=== PATIENT | male | born 1995 | race Caucasian/White ===

== ENCOUNTER 2020-08-25 08:23 | Outpatient (CLI) | payer BC ==
[2020-08-25 16:39] LABS: SARS-CoV-2 PCR by NAA DETECTED (NotDetected)
== END 2020-08-25 08:24 | disposition home or self-care (01) ==
LOC: EDSEX → CSHLAB 08:23
PROVIDERS: ATTEND Obstetrics & Gynecology
DX: U07.1 COVID-19 (principal)
CPT/HCPCS: 87635; U0003; U0005

== ENCOUNTER 2020-08-27 12:31 | Day surgery (SDC) | payer BC ==
[2020-08-27 13:06] VITALS: BMI 23.7
[2020-08-27] MEDS ORDERED: hydrALAZINE 20 MG/ML VIAL SLOW IVP PRN (13:47)
[2020-08-27] MEDS ORDERED: Acetaminophen 500 MG TAB PO PRN (14:03)
[2020-08-27 15:09] LABS: Bilirubin Neg (Negative); Blood, Urine 250 (Negative); Clarity Clear (Clear); Glucose, Urine (Dipstick) Normal (Negative); Ketone, Urine Negative (Negative); Leukocyte Negative (Negative); Nitrite Negative (Negative); Protein, Urine (Dipstick) 15 mg/dl (Neg-Trace); Specific Gravity, Urine 1.015 (1.002-1.036); Urobilinogen Normal mg/dL (Less than 2); pH, Urine 6.5 (5.0-9.0)
[2020-08-27 15:17] LABS: Urine Culture Reflex No No
[2020-08-27 15:19] LABS: RBC/HPF Greater than 50 HPF (0-3); Squamous Epithelial 0-3 HPF (0-3)
[2020-08-27 15:20] LABS: Bacteria/HPF Rare-Few HPF (None Seen); Transitional Epithelial 0-3 HPF (None Seen)
[2020-08-27 15:21] LABS: Other Microscopic Description MUCOUS 1+
== END 2020-08-27 15:50 | disposition home or self-care (01) ==
LOC: CSHLD/OP 12:31 → EDSEX 12:31 → CSHLD/OP 15:50
PROVIDERS: ATTEND Obstetrics & Gynecology
DX: O99.891 Other specified diseases and conditions complicating pregnancy (principal); N13.30 Unspecified hydronephrosis; O98.513 Other viral diseases complicating pregnancy, third trimester; U07.1 COVID-19; O99.113 Other diseases of the blood and blood-forming organs and certain disorders involving the immune mechanism complicating pregnancy, third trimester; D68.51 Activated protein C resistance; Z3A.39 39 weeks gestation of pregnancy
CPT/HCPCS: 76770; 81001; 87086; 99283

== ENCOUNTER 2020-08-29 19:00 | Inpatient (IN) | payer BC ==
[2020-08-29] MEDS ORDERED: Ibuprofen 800 MG TAB PO PRN (20:00)
[2020-08-29] MEDS ORDERED: Ondansetron PF 4 MG/2 ML Vial IVP PRN (20:00)
[2020-08-29] MEDS ORDERED: Misoprostol 200 MCG TAB RC PRN (20:00)
[2020-08-29] MEDS ORDERED: hydrALAZINE 20 MG/ML VIAL SLOW IVP PRN (20:00)
[2020-08-29] MEDS ORDERED: Promethazine HCl 25 MG/ML VIAL IM PRN (20:00)
[2020-08-29] MEDS ORDERED: Butorphanol Tartrate 1 MG/ML VIAL SLOW IVP PRN (20:00)
[2020-08-29] MEDS ORDERED: Lidocaine 1% (PF) 30 ML VIAL SC PRN (20:00)
[2020-08-29] MEDS ORDERED: Misoprostol 100 MCG TAB PO SCH (20:00)
[2020-08-29] MEDS ORDERED: Carboprost 250 MCG/ML AMP IM PRN (20:00)
[2020-08-29] MEDS ORDERED: NS w/ Oxytocin 30 units 500 ML IV SCH ×2 (20:00)
[2020-08-29] MEDS ORDERED: NS w/ Oxytocin 30 units 500 ML IVPB SCH (20:00)
[2020-08-29] MEDS ORDERED: Acetaminophen 500 MG TAB PO PRN (20:00)
[2020-08-29] MEDS ORDERED: Methylergonovine 0.2 MG/ML VIAL IM PRN (20:00)
[2020-08-29] MEDS: Lactated Ringer's 1,000 ML IV SCH (20:10)
[2020-08-29 21:22] LABS: Hemoglobin 11.6 g/dL (12.0-15.5); Mean Corpuscular HGB CONC 33.4 g/dL (32.0-36.0); Mean Corpuscular Hemoglobin 29.6 pg (27.0-33.0); Mean Corpuscular Volume 88.5 fl (81.6-98.3); Mean Platelet Volume 11.8 fl (7.4-10.4); Platelet Count 232 10x3/uL (150-450); RBC Distribution Width 12.5 % (11.5-14.5); Red Blood Cell (RBC) Count 3.92 10x6/uL (3.90-5.03); White Blood Cell (WBC) Count 9.5 10x3/uL (3.5-10.5)
[2020-08-29 21:55] LABS: Hep B Surf Ag Non-Reactive S/CO (NonReactive); Syphilis Antibody Nonreactive (Nonreactive); Syphilis Antibody Index 0.03 S/CO (<1.00 Non-Reactive)
[2020-08-29 22:14] LABS: HBSAg Index 0.17 S/CO (0-0.99)
[2020-08-29 22:18] VITALS: BMI 25.2
[2020-08-29 22:55] LABS: Bilirubin Neg (Negative); Blood, Urine Negative (Negative); Clarity Clear (Clear); Glucose, Urine (Dipstick) Normal (Negative); Ketone, Urine Negative (Negative); Leukocyte Negative (Negative); Nitrite Negative (Negative); Protein, Urine (Dipstick) Negative (Neg-Trace); Urobilinogen Normal mg/dL (Less than 2)
[2020-08-30] MEDS: Lactated Ringer's 1,000 ML IV SCH ×2 (04:32→18:13)
[2020-08-30] MEDS ORDERED: Fentanyl 4 mcg/Bup 0.1% Cadd 100 ML ONE (07:11)
[2020-08-30] MEDS ORDERED: Lactated Ringer's 500 ML IV PRN (10:38)
[2020-08-30] MEDS ORDERED: Naloxone HCl 0.4 mg/ml Vial IVP PRN ×2 (10:38)
[2020-08-30] MEDS ORDERED: diphenhydrAMINE 50 MG/ML VIAL IVP PRN (10:38)
[2020-08-30] MEDS ORDERED: Eucerin (Mineral Oil/Petrolatum,White) 30 gm Jar TOP PRN (10:38)
[2020-08-30] MEDS ORDERED: Promethazine HCl 25 MG/ML VIAL IM PRN (10:38)
[2020-08-30] MEDS ORDERED: ePHEDrine 50 MG/ML VIAL SLOW IVP PRN (10:38)
[2020-08-30] MEDS ORDERED: Ondansetron PF 4 MG/2 ML Vial IVP PRN ×2 (10:38→17:04)
[2020-08-30] MEDS ORDERED: Acetaminophen 325 MG TAB PO PRN (10:38)
[2020-08-30] MEDS ORDERED: Communication Order-Pharmacy FS SCH (10:45)
[2020-08-30] MEDS: Ibuprofen 800 MG TAB PO PRN ×2 (15:00→22:09)
[2020-08-30] MEDS ORDERED: Acetaminophen/Codeine 30-300mg Tablet PO PRN (17:04)
[2020-08-30] MEDS ORDERED: Adacel (T-DAP) 0.5 ML SYRINGE IM ONE (17:04)
[2020-08-30] MEDS ORDERED: Lanolin Ointment 7 GM TUBE TOP PRN (17:04)
[2020-08-30] MEDS ORDERED: Milk Of Magnesia 30 ML UDCUP PO PRN (17:04)
[2020-08-30] MEDS ORDERED: hydrALAZINE 20 MG/ML VIAL SLOW IVP PRN (17:04)
[2020-08-30] MEDS ORDERED: Bisacodyl 10 MG SUPP PR PRN (17:04)
[2020-08-30] MEDS ORDERED: NS w/ Oxytocin 30 units 500 ML IV SCH (17:30)
[2020-08-30] MEDS: Ferrous Sulfate 325 MG TAB PO SCH (18:12)
[2020-08-30] MEDS: HYDROcodone/Acetaminophen 5/325 mg Tablet PO PRN (18:33)
[2020-08-30] MEDS: Docusate Calcium (SURFAK) 240 MG CAP PO SCH (22:09)
[2020-08-31] MEDS: Ibuprofen 800 MG TAB PO PRN ×3 (05:09→23:51)
[2020-08-31 06:01] LABS: Hemoglobin 9.7 g/dL (12.0-15.5); Mean Corpuscular HGB CONC 33.1 g/dL (32.0-36.0); Mean Corpuscular Hemoglobin 29.3 pg (27.0-33.0); Mean Corpuscular Volume 88.5 fl (81.6-98.3); Mean Platelet Volume 10.7 fl (7.4-10.4); Platelet Count 169 10x3/uL (150-450); RBC Distribution Width 12.7 % (11.5-14.5); Red Blood Cell (RBC) Count 3.31 10x6/uL (3.90-5.03); White Blood Cell (WBC) Count 10.4 10x3/uL (3.5-10.5)
[2020-08-31] MEDS: Docusate Calcium (SURFAK) 240 MG CAP PO SCH ×2 (11:34→21:10)
[2020-08-31] MEDS: Ferrous Sulfate 325 MG TAB PO SCH ×2 (11:34→18:03)
[2020-08-31] MEDS: Prenatal Vitamin 1 TAB PO SCH (11:34)
[2020-08-31] MEDS: HYDROcodone/Acetaminophen 5/325 mg Tablet PO PRN (14:44)
[2020-09-01 08:00] VITALS: BP 118/62; TEMP 98.2
[2020-09-01] MEDS: Docusate Calcium (SURFAK) 240 MG CAP PO SCH (08:51)
[2020-09-01] MEDS: Ferrous Sulfate 325 MG TAB PO SCH (08:51)
[2020-09-01] MEDS: Prenatal Vitamin 1 TAB PO SCH (08:51)
== END 2020-09-01 13:00 | disposition home or self-care (01) | DRG 807 ==
LOC: EDSEX → CSHLD 19:02 → CSHPP 08-30 14:40
PROVIDERS: ADMIT Obstetrics & Gynecology; ATTEND Obstetrics & Gynecology
PROC: 10E0XZZ Delivery of Products of Conception, External Approach (ICD-10-PCS; principal; 2020-08-30)
PROC: 0KQM0ZZ Repair Perineum Muscle, Open Approach (ICD-10-PCS; 2020-08-30)
DX: O69.81X0 Labor and delivery complicated by cord around neck, without compression, not applicable or unspecified (principal); Z37.0 Single live birth; O70.1 Second degree perineal laceration during delivery; Z20.822 Contact with and (suspected) exposure to COVID-19; Z3A.39 39 weeks gestation of pregnancy
CPT/HCPCS: 36415; 76770; 81001; 81003; 85027; 86780; 86850; 86900; 86901; 87086; 87340; 99283; J2590

== ENCOUNTER 2022-07-31 20:43 | Emergency (ER) | payer BC ==
[2022-07-31 21:49] LABS: Bilirubin Neg (Negative); Blood, Urine 25 (Negative); Clarity Clear (Clear); Glucose, Urine (Dipstick) Normal (Negative); Ketone, Urine 150 mg/dL (Negative); Leukocyte 100 (Negative); Nitrite Negative (Negative); Protein, Urine (Dipstick) 15 mg/dl (Neg-Trace)
[2022-07-31 22:00] LABS: Bacteria/HPF None Seen HPF (None Seen); RBC/HPF 0-3 HPF (0-3); Squamous Epithelial 0-3 HPF (0-3); WBC/HPF 0-3 HPF (0-3)
[2022-07-31 22:01] LABS: Mucous/LPF 1+ LPF (<2+)
[2022-07-31] MEDS ORDERED: Ondansetron ODT 4 MG TAB ONE (23:42)
== END 2022-07-31 23:43 | disposition home or self-care (01) ==
LOC: CSHERS 20:43
DX: O99.891 Other specified diseases and conditions complicating pregnancy (principal); M54.9 Dorsalgia, unspecified; R30.0 Dysuria; Z3A.20 20 weeks gestation of pregnancy
CPT/HCPCS: 81003; 81015; 87086; 99283; Q0162

== ENCOUNTER 2022-12-13 22:39 | Inpatient (IN) | payer BC ==
[2022-12-13 22:53] VITALS: BMI 26.9
[2022-12-13] MEDS ORDERED: Promethazine HCl 25 MG/ML VIAL IM PRN (23:21)
[2022-12-13] MEDS ORDERED: Lidocaine 1% (PF) 30 ML VIAL SC PRN (23:21)
[2022-12-13] MEDS ORDERED: Ondansetron PF 4 MG/2 ML Vial IVP PRN (23:21)
[2022-12-13] MEDS ORDERED: Lactated Ringer's 1,000 ML IV PRN (23:21)
[2022-12-13] MEDS ORDERED: hydrALAZINE 20 MG/ML VIAL SLOW IVP PRN (23:21)
[2022-12-13] MEDS ORDERED: HYDROcodone/Acetaminophen 5/325 mg Tablet PO PRN ×2 (23:27)
[2022-12-13] MEDS ORDERED: Methylergonovine 0.2 MG/ML VIAL IM PRN (23:27)
[2022-12-13] MEDS ORDERED: Ibuprofen 800 MG TAB PO PRN (23:27)
[2022-12-13] MEDS ORDERED: Misoprostol 200 MCG TAB PR PRN (23:27)
[2022-12-13] MEDS ORDERED: Butorphanol Tartrate 1 MG/ML VIAL SLOW IVP PRN (23:27)
[2022-12-13] MEDS ORDERED: NS w/ Oxytocin 30 units 500 ML ONE (23:28)
[2022-12-13] MEDS ORDERED: NS w/ Oxytocin 30 units 500 ML IV SCH (23:45)
[2022-12-14 00:01] LABS: Hematocrit 31.3 % (34.9-44.5); Hemoglobin 10.3 g/dL (12.0-15.5); Mean Corpuscular HGB CONC 32.9 g/dL (32.0-36.0); Mean Corpuscular Hemoglobin 26.7 pg (27.0-33.0); Mean Corpuscular Volume 81.1 fl (81.6-98.3); Mean Platelet Volume 10.6 fl (7.4-10.4); Platelet Count 264 10x3/uL (150-450); Red Blood Cell (RBC) Count 3.86 10x6/uL (3.90-5.03); White Blood Cell (WBC) Count 13.4 10x3/uL (3.5-10.5)
[2022-12-14 00:34] LABS: HBSAg Index 0.17 S/CO (0-0.99); Hep B Surf Ag - L&D Non-Reactive S/CO (NonReactive); Syphilis Antibody Nonreactive (Nonreactive); Syphilis Antibody Index 0.03 S/CO (<1.00 Non-Reactive)
[2022-12-14] MEDS ORDERED: HYDROcodone/Acetaminophen 5/325 mg Tablet PO PRN ×2 (04:48)
[2022-12-14] MEDS ORDERED: Boostrix 0.5 ML (Tdap) VIAL (>/=7 yrs of age) IM ONE (04:48)
[2022-12-14] MEDS ORDERED: Methylergonovine 0.2 MG/ML VIAL IM PRN (04:48)
[2022-12-14] MEDS ORDERED: Lanolin Ointment 7 GM TUBE TOP PRN (04:48)
[2022-12-14] MEDS ORDERED: NS w/ Oxytocin 30 units 500 ML IV SCH (04:48)
[2022-12-14] MEDS ORDERED: Milk Of Magnesia 30 ML UDCUP PO PRN (04:48)
[2022-12-14] MEDS ORDERED: Bisacodyl 10 MG SUPP PR PRN (04:48)
[2022-12-14] MEDS ORDERED: Benzocaine-Menthol 82.5 ML CAN TOP PRN (04:48)
[2022-12-14] MEDS ORDERED: Misoprostol 200 MCG TAB VAG PRN (04:48)
[2022-12-14] MEDS ORDERED: hydrALAZINE 20 MG/ML VIAL SLOW IVP PRN (04:48)
[2022-12-14] MEDS: Ibuprofen 800 MG TAB PO SCH ×3 (08:06→21:49)
[2022-12-14] MEDS: Prenatal Vitamin 1 TAB PO SCH (08:07)
[2022-12-14] MEDS: Docusate 100 MG CAP PO SCH ×2 (08:07→21:49)
[2022-12-14] MEDS: Ferrous Sulfate 325 MG TAB PO SCH ×2 (09:50→21:45)
[2022-12-15] MEDS: Ibuprofen 800 MG TAB PO SCH (06:16)
[2022-12-15] MEDS: Prenatal Vitamin 1 TAB PO SCH (08:20)
[2022-12-15] MEDS: Docusate 100 MG CAP PO SCH (08:20)
[2022-12-15 08:29] VITALS: BP 121/62; TEMP 97.7
[2022-12-15] MEDS: Ferrous Sulfate 325 MG TAB PO SCH (09:47)
== END 2022-12-15 11:40 | disposition home or self-care (01) | DRG 806 ==
LOC: CSHLD/OP 22:39 → CSHLD 23:01 → CSHPP 12-14 05:50
PROVIDERS: ADMIT Student in an Organized Health Care Education/Training Program; ATTEND Student in an Organized Health Care Education/Training Program
PROC: 10E0XZZ Delivery of Products of Conception, External Approach (ICD-10-PCS; principal; 2022-12-14)
PROC: 0HQ9XZZ Repair Perineum Skin, External Approach (ICD-10-PCS; 2022-12-14)
DX: O99.12 Other diseases of the blood and blood-forming organs and certain disorders involving the immune mechanism complicating childbirth (principal); D68.51 Activated protein C resistance; Z37.0 Single live birth; Z3A.39 39 weeks gestation of pregnancy; O69.81X0 Labor and delivery complicated by cord around neck, without compression, not applicable or unspecified; O32.6XX0 Maternal care for compound presentation, not applicable or unspecified; O70.0 First degree perineal laceration during delivery
CPT/HCPCS: 36415; 85027; 86780; 86850; 86900; 86901; 87340; 99285; J2001; J2405

== ENCOUNTER 2022-12-20 20:57 | Emergency (ER) | payer BC ==
[2022-12-20] MEDS ORDERED: Ketorolac Tromethamine 30 MG/ML VIAL ONE (21:28)
[2022-12-20 21:46] LABS: #Eosinphils 0.1 10x3/uL (0.0-0.5); #Monocytes 0.7 10x3/uL (0.0-1.1); #Neutrophils 10.2 10x3/uL (1.5-8.4); %Basophils 0.1 % (0.0-2.0); %Lymphocytes 11.4 % (18.0-47.0); %Monocytes 5.4 % (0.0-10.0); %Neutrophils 81.5 % (40.0-75.0); Hematocrit 37.8 % (34.9-44.5); Hemoglobin 12.1 g/dL (12.0-15.5); Mean Corpuscular Hemoglobin 26.3 pg (27.0-33.0); Mean Corpuscular Volume 82.2 fl (81.6-98.3); Mean Platelet Volume 9.5 fl (7.4-10.4); Platelet Count 418 10x3/uL (150-450); RBC Distribution Width 14.6 % (11.5-14.5); White Blood Cell (WBC) Count 12.5 10x3/uL (3.5-10.5)
[2022-12-20 21:52] LABS: ALT (SGPT) 15 U/L (8-55); AST (SGOT) 14 U/L (5-34); Albumin 4.2 g/dL (3.5-5.0); Alkaline Phosphatase 86 U/L (40-110); Anion Gap 13 mmol/L (10-20); BUN (Urea Nitrogen) 14 mg/dL (7.0-18.7); Bilirubin, Total 0.9 mg/dL (0.2-1.2); Calc. Creatinine Clearance 0 mL/min (70-130); Calcium 9.6 mg/dL (7.8-10.44); Carbon Dioxide 23 mmol/L (22-29); Chloride 102 mmol/L (98-107); Estimated GFR 97; Globulin 3.5 g/dL (2.4-3.5); Glucose 113 mg/dL (70-105); Lipase 53 U/L (8-78); Potassium 3.4 mmol/L (3.5-5.1); Protein, Total 7.7 g/dL (6.0-8.3); Sodium 135 mmol/L (136-145)
[2022-12-20 22:23] LABS: Bilirubin Neg (Negative); Blood, Urine 150 (Negative); Clarity Slightly Cloudy (Clear); Glucose, Urine (Dipstick) Normal (Negative); Ketone, Urine Negative (Negative); Leukocyte 500 (Negative); Nitrite Negative (Negative); Protein, Urine (Dipstick) 30 mg/dl (Neg-Trace); Specific Gravity, Urine 1.015 (1.005-1.030); pH, Urine 6.5 (5.0-9.0)
[2022-12-20 22:37] LABS: Bacteria/HPF 1+ HPF (None Seen); CAUTI Indications for Culture Dysuria,urgency,freq; WBC/HPF 21-50 HPF (0-3)
[2022-12-20 22:38] LABS: Urine Culture Reflex Yes Yes
== END 2022-12-20 23:29 | disposition home or self-care (01) ==
LOC: CSHERS 20:57
DX: N39.0 Urinary tract infection, site not specified (principal)
CPT/HCPCS: 76856; 80053; 81001; 83690; 85025; 87086; 96374; J1885